=== PATIENT | female | born 1945 ===

== ENCOUNTER 2017-05-17 18:51 | Inpatient (IN) | payer MEDICARE ==
[2017-05-17 20:05] LABS: BASO # 0.1 K/uL (0.0-0.2); BASO % 1.2 % (0.0-2.0); EOS # 0.1 K/uL (0.0-0.7); EOS % 0.9 % (0.0-4.0); HEMOGLOBIN 13.5 g/dL (12.0-16.0); LYMPH # 1.9 K/uL (1.0-4.3); LYMPH % 29.8 % (20.0-40.0); MEAN CELL VOLUME 90.3 fl (81.0-99.0); MEAN CORPUSCULAR HEMOGLOBIN 30.2 pg (27.0-31.0); MEAN CORPUSCULAR HGB CONC 33.4 g/dL (33.0-37.0); MEAN PLATELET VOLUME 7.4 fl (7.2-11.7); MONO # 0.3 K/uL (0.0-0.8); MONO % 5.6 % (0.0-10.0); NEUT # 3.9 K/uL (1.8-7.0); NEUT % 62.5 % (50.0-75.0); RBC 4.47 Mil/uL (3.80-5.20); RED CELL DISTRIBUTION WIDTH 14.5 % (11.5-14.5); WHITE BLOOD COUNT 6.2 K/uL (4.8-10.8)
[2017-05-17 20:24] LABS: ALB/GLOB RATIO 1.5 (1.0-2.1); ALT/SGPT 45 U/L (9-52); AST/SGOT 33 U/L (14-36); BLOOD UREA NITROGEN 8 mg/dl (7-17); CALCIUM 8.9 mg/dL (8.4-10.2); GFR AFRICAN-AMERICAN > 60; GFR NON-AFRICAN AMERICAN > 60
[2017-05-17 20:32] LABS: PROTHROMBIN TIME 10.1 Seconds (9.8-13.1)
--- NOTE | 2017-05-17 20:39 | ED PDOC ---
"Syncope/Near Syncope/Dizziness Time Seen by Provider: 05/17/17 19:02 Chief Complaint (Nursing): Syncope Chief Complaint (Provider): Syncope History Per: Patient, EMS, Other (bystander) History/Exam Limitations: no limitations Onset/Duration Of Symptoms: Mins (prior to arrival) Current Symptoms Are (Timing): Still Present Additional Complaint(s): Guerda Elizabeth is a 71 year old female who presents to the emergency department via EMS for an evaluation of syncopal episode associated with right knee pain onset prior to arrival. Patient stated that the last thing she remembered is going back upstairs to her apartment. A bystander reported patient appeared unresponsive, had eyes open, and tongue was sticking out of her mouth but no seizure activities or postictal period noted. EMS also reported urinary incontinence but patient denied this. PMD: Gaston Jain MD Past Medical History Reviewed: Historical Data, Nursing Documentation, Vital Signs Vital Signs: Last Vital Signs Temp 97.4 F L 05/17/17 18:57 Pulse 78 05/17/17 18:57 Resp 17 05/17/17 18:57 BP 115/60 05/17/17 18:57 Pulse Ox 96 05/17/17 18:57 - Medical History PMH: Asthma, Diabetes, HTN, Hypercholesterolemia, Seizures Denies: HIV, Chronic Kidney Disease - Surgical History Surgical History: Tonsillectomy - Family History Family History: States: Unknown Family Hx - Social History Current smoker - smoking cessation education provided: Yes Alcohol: Occasional Drugs: Denies - Home Medications Home Medications: Ambulatory Orders Medication Instructions Recorded Atorvastatin Calcium [Lipitor] 40 mg PO DAILY 07/13/15 Insulin Lispro, Recombinant 8 units SC AC #0 07/14/15 [Humalog] Valsartan [Diovan] 80 mg PO DAILY #0 tab 07/14/15 Insulin Glargine,Hum.rec.anlog 40 units SC HS 05/17/17 [Lantus] - Allergies Allergies/Adverse Reactions: Allergies Allergy/AdvReac Type Severity Reaction Status Date / Time No Known Allergies Allergy Verified 05/17/17 19:48 Review of Systems ROS Statement: Except As Marked, All Systems Reviewed And Found Negative Musculoskeletal: Positive for: Other (right knee pain) Neurological: Positive for: Other (syncopal episode) Physical Exam - Reviewed Nursing Documentation Reviewed: Yes Vital Signs Reviewed: Yes - Physical Exam Appears: Positive for: Well, Non-toxic, No Acute Distress Head Exam: Positive for: ATRAUMATIC, NORMAL INSPECTION, NORMOCEPHALIC Skin: Positive for: Normal Color Eye Exam: Positive for: EOMI, Normal appearance, PERRL Cardiovascular/Chest: Positive for: Regular Rate, Rhythm Respiratory: Positive for: CNT, Normal Breath Sounds Extremity: Positive for: Normal ROM, Tenderness (right knee). Negative for: Pedal Edema, Deformity Neurologic/Psych: Positive for: Alert (x3), prosthodontist II-XII (intact), Oriented - Laboratory Results Result Diagrams: 05/17/17 20:00 05/17/17 20:00 - ECG O2 Sat by Pulse Oximetry: 96 (RA) Pulse Ox Interpretation: Normal Medical Decision Making Medical Decision Making: Initial Impression: Syncope Initial Plan: * CT head without contrast * EKG * Labs * Troponin I * Urine dipstick * PTT * PT * CXR * Xray knee (right) * Glucose, blood, POC * Urinalysis Time: 2054 --CT head FINDINGS: BRAIN: Stable appearance of small, focal areas of encephalomalacia in the right parietal and occipital lobes, which may be secondary to old/chronic infarcts. Areas of hypodensity seen in the white matter bilaterally, nonspecific in appearance, but most likely representing chronic small vessel ischemic changes, in a patient of this age. Tiny calcification in the left occipital lobe, stable in appearance. Diffuse, moderate to marked age-related cortical atrophy and ventriculomegaly. No significant acute abnormality identified. No acute hemorrhage seen within the brain. No acute extra-axial fluid collections visualized. No evidence of significant mass effect within the brain. VENTRICLES: See above. BONES/JOINTS: Since the prior study, there has been development of multiple lytic lesions in the skull. The largest of these is a 2 cm lytic lesion at the vertex, image 41/ series 601, which erodes through the inner table. There are additional lytic lesions in the right skull base, involving the sphenoid bone, image 7 of series 7, the right occipital bone overlying the right cerebellum, image 6 of series 7, and the left frontal bone, image 36 of series 7. SOFT TISSUES: No acute abnormality of the visualized soft tissues is seen. VASCULATURE: Atherosclerotic calcification. SINUSES: Visualized paranasal sinuses appear clear. MASTOID AIR CELLS: Mastoid air cells appear clear. IMPRESSION: GUERDA ELIZABETH | Final Radiology Report CONFIDENTIALITY STATEMENT This report is intended only for use by the referring physician, and only in accordance with law. If you received this in error, call [phone]. Page 2 of 2 - No acute findings is seen within the brain. 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 In a patient of this age, cannot exclude a neoplastic process, such as lytic skull metastases or multiple myeloma. Further workup is recommended, such as with followup MRI of the brain with gadolinium or bone scan, not necessarily on an emergent basis. - See above for remaining findings. Scribe Attestation: Documented by Ann Mora, acting as a scribe for Suzette Otero MD. Provider Scribe Attestation: All medical record entries made by the Scribe were at my direction and personally dictated by me. I have reviewed the chart and agree that the record accurately reflects my personal performance of the history, physical exam, medical decision making, and the department course for this patient. I have also personally directed, reviewed, and agree with the discharge instructions and disposition. Disposition - Clinical Impression Clinical Impression: Syncope, Bone lesion - Patient ED Disposition Is Patient to be Admitted: Yes - Disposition Disposition Time: 21:28 Condition: STABLE - Pt Status Changed To: Hospital Disposition Of: Inpatient - Admit Certification Admit to Inpatient:: After my assessment, the patient will require hospitalization for at least two midnights. This is because of the severity of symptoms shown, intensity of services needed, and/or the medical risk in this patient being treated as an outpatient. - POA Present On Arrival: None"
--- NOTE | 2017-05-17 20:56 | CT ---
EXAM: CT Head Without Intravenous Contrast CLINICAL HISTORY: 71 years old, female; Signs and symptoms; Syncope and collapse TECHNIQUE: Axial computed tomography images of the head/brain without intravenous contrast. This CT exam was performed using one or more of the following dose reduction techniques: automated exposure control, adjustment of the mA and/or kV according to patient size, and/or use of iterative reconstruction technique. Coronal and sagittal reformatted images were created and reviewed. EXAM DATE/TIME: 05/17/2017 7:46 PM COMPARISON: Prior head CT of 07/12/2015 FINDINGS: BRAIN: Stable appearance of small, focal areas of encephalomalacia in the right parietal and occipital lobes, which may be secondary to old/chronic infarcts. Areas of hypodensity seen in the white matter bilaterally, nonspecific in appearance, but most likely representing chronic small vessel ischemic changes, in a patient of this age. Tiny calcification in the left occipital lobe, stable in appearance. Diffuse, moderate to marked age-related cortical atrophy and ventriculomegaly. No significant acute abnormality identified. No acute hemorrhage seen within the brain. No acute extra-axial fluid collections visualized. No evidence of significant mass effect within the brain. VENTRICLES: See above. BONES/JOINTS: Since the prior study, there has been development of multiple lytic lesions in the skull. The largest of these is a 2 cm lytic lesion at the vertex, image 41/series 601, which erodes through the inner table. There are additional lytic lesions in the right skull base, involving the sphenoid bone, image 7 of series 7, the right occipital bone overlying the right cerebellum, image 6 of series 7, and the left frontal bone, image 36 of series 7. SOFT TISSUES: No acute abnormality of the visualized soft tissues is seen. VASCULATURE: Atherosclerotic calcification. SINUSES: Visualized paranasal sinuses appear clear. MASTOID AIR CELLS: Mastoid air cells appear clear. IMPRESSION: - No acute findings is seen within the brain. 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 In a patient of this age, cannot exclude a neoplastic process, such as lytic skull metastases or multiple myeloma. Further workup is recommended, such as with followup MRI of the brain with gadolinium or bone scan, not necessarily on an emergent basis. - See above for remaining findings.
--- NOTE | 2017-05-17 23:04 | CP.PCM.HP ---
History of Present Illness - History of Present Illness History of Present Illness: 71 y/o F with PMH including HTN, IDDM2, CAD s/p stent, ETOH abuse brought in by EMS after syncopal episode. Patient reports drinking 2-3 24oz cans of beer outside of her apartment, after which she got up enter her home. At that time a bystander witnessed her lose consciousness, falling to the floor and hitting her head. Witness states patient had her eyes open but appeared unresponsive. Several seconds later, patient regained consciousness. No convulsions, tongue biting or post-ictal state was noted but EMS reports urinary incontinence. Patient had a similar episode 2 years ago associated with ETOH consumption, which required admission. An EEG was performed at that time which was within normal limits. Patient has been consistently drinking 2-3 24oz cans of beer daily for years despite attempts at cutting back and has never been admitted to a rehab. She currently reports right knee pain from her fall but denies headache , confusion, visual disturbances, dizziness, focal neuro deficits, chest pain, SOB, abdominal pain, nausea or vomiting. PMD: Dr Díaz Present on Admission - Present on Admission Any Indicators Present on Admission: Yes History of DVT/PE: No History of Uncontrolled Diabetes: Yes Urinary Catheter: No Decubitus Ulcer Present: No Review of Systems - Review of Systems All systems: reviewed and no additional remarkable complaints except Past Patient History - Past Medical History & Family History Past Medical History?: Yes - Past Social History Smoking Status: Light Smoker < 10 Cigarettes Daily (5 cig per day. Has smoked since age 12) Alcohol: Other (Drinks 2-3 24 oz beers daily) Drugs: Denies Home Situation {Lives}: With Family (Lives with daughter) - CARDIAC Hx Cardiac Disorders: Yes (CAD s/p stent) Hx Hypertension: Yes - PULMONARY Hx Asthma: Yes - NEUROLOGICAL Hx Syncope: Yes - HEENT Hx HEENT Problems: No - RENAL Hx Chronic Kidney Disease: No - ENDOCRINE/METABOLIC Hx Diabetes Mellitus Type 2: Yes - HEMATOLOGICAL/ONCOLOGICAL Hx Human Immunodeficiency Virus (HIV): No - INTEGUMENTARY Hx Dermatological Problems: No - MUSCULOSKELETAL/RHEUMATOLOGICAL Hx Falls: Yes - GASTROINTESTINAL Hx Gastrointestinal Disorders: No - GENITOURINARY/GYNECOLOGICAL Hx Genitourinary Disorders: No - PSYCHIATRIC Hx Psychophysiologic Disorder: Yes Hx Substance Use: Yes (ETOH abuse) - SURGICAL HISTORY Hx Tonsillectomy: Yes - ANESTHESIA Hx Anesthesia: Yes Hx Anesthesia Reactions: No Meds Allergies/Adverse Reactions: Allergies Allergy/AdvReac Type Severity Reaction Status Date / Time No Known Allergies Allergy Verified 05/17/17 19:48 Physical Exam - Constitutional Appears: Non-toxic, No Acute Distress - Head Exam Head Exam: ATRAUMATIC (No visible head trauma or brusing), NORMAL INSPECTION - Eye Exam Eye Exam: EOMI, PERRL - ENT Exam ENT Exam: Mucous Membranes Moist - Respiratory Exam Respiratory Exam: absent: Chest Wall Tenderness Additional comments: B/L air entry present with no wheezes, crackles or rhonchii audible. Prolonged expiratory phase. No signs of respiratory distress. - Cardiovascular Exam Cardiovascular Exam: REGULAR RHYTHM, RRR, +S1, +S2 - GI/Abdominal Exam GI & Abdominal Exam: Normal Bowel Sounds, Soft. absent: Guarding, Rebound, Tenderness - Extremities Exam Extremities exam: Positive for: normal capillary refill. Negative for: calf tenderness, pedal edema - Neurological Exam Neurological exam: Alert, CN II-XII Intact, Oriented x3 Additional comments: [id number] normal b/l. - Psychiatric Exam Psychiatric exam: Normal Affect, Normal Mood - Skin Skin Exam: Dry, Warm Results - Vital Signs Recent Vital Signs: Last Vital Signs Temp 98.4 F 05/17/17 22:49 Pulse 73 05/17/17 22:49 Resp 16 05/17/17 22:49 BP 148/66 05/17/17 22:49 Pulse Ox 97 05/17/17 22:14 - Labs Result Diagrams: 05/17/17 20:00 05/17/17 20:00 Labs: Laboratory Results - last 24 hr 05/17/17 22:40 Alcohol, Quantitative 149 H Assessment & Plan - Assessment and Plan (Free Text) Assessment: 71 y/o F with PMH including HTN, IDDM2, CAD s/p stent, ETOH abuse brought in by EMS after syncopal episode associated with ETOH use. Plan: Syncope -CT head did not detect any acute intracranial bleeding. Stable focal areas of encephalomalacia are present in right parietal and occipital lobes which may be secondary to old/chronic infarcts. Multiple lytic lesions detected in the skull , the largest measuring 2cm, which is a new finding compared to prior study in . -Possibly ETOH related -EKG sinus rhythm with 1st degree AV block -Admit to telemetry for continuous cardiac monitoring -Echo, Carotid U/S ordered -Normal EEG in 06/2015 -Neurology consult requested Insulin Dependent Diabetes Mellitus, Type 2 -Last HgbA1c: 11.4% on 07/13/15 -Will repeat A1c -Continue Levemir 40units SC HS -MDSS -Accuchecks ACHS -Hypoglycemia protocol HTN -Well controlled -Continue valsartan 80mg PO daily CAD s/p stent -Taking atorvastatin 40mg PO HS -ASA 81mg PO daily ETOH abuse -Serum ETOH 149 in ED -CIWA score: 0 -Will monitor for signs of withdrawal although patient states she has been abstinent for as long as 1 month without withdrawal symptoms -Social work consult requested DVT Prophylaxis -Lovenox 40mg SC daily
[2017-05-17] MEDS ORDERED: Glucagon Recombinant 1 mg Inj IM PRN (23:16)
[2017-05-17] MEDS ORDERED: Dextrose 50% SYRINGE Inj (50 ml) IV PRN (23:16)
[2017-05-17] MEDS: Insulin Detemir 100 Units/ml Inj SC SCH (23:55)
[2017-05-18 01:50] LABS: SQUAMOUS EPITHIAL < 1 /hpf (0-5); URINE BILIRUBIN NEGATIVE (NEGATIVE); URINE BLOOD SMALL (NEGATIVE); URINE CLARITY CLEAR (Clear); URINE COLOR STRAW (YELLOW); URINE GLUCOSE (UA) >=500 mg/dL (Normal); URINE LEUKOCYTE ESTERASE NEG Leu/uL (Negative); URINE NITRATE NEGATIVE (NEGATIVE); URINE PROTEIN NEGATIVE (NEGATIVE); URINE UROBILINOGEN 0.2-1.0 mg/dL (0.2-1.0)
[2017-05-18 05:33] LABS: BARBITURATES, UR NEGATIVE (NEGATIVE); BENZODIAZEPINES, UR NEGATIVE (NEGATIVE); OPIATES, UR NEGATIVE (NEGATIVE); PHENCYCLIDINE, UR NEGATIVE (NEGATIVE)
[2017-05-18] MEDS: Insulin Regular 100 units/ml SC SCH ×4 (08:30→22:18)
--- NOTE | 2017-05-18 08:52 | RAD ---
HISTORY: Syncope COMPARISON: No prior. TECHNIQUE: Chest PA and lateral FINDINGS: LUNGS: No active pulmonary disease. PLEURA: No significant pleural effusion identified. No pneumothorax apparent. CARDIOVASCULAR: Normal. OSSEOUS STRUCTURES: No significant abnormalities. VISUALIZED UPPER ABDOMEN: Normal. OTHER FINDINGS: None. IMPRESSION: No active disease.
--- NOTE | 2017-05-18 08:56 | RAD ---
PROCEDURE: Right Knee Radiographs. HISTORY: Fall COMPARISON: None. FINDINGS: BONES: Normal. No fracture. JOINTS: Normal. No osteoarthritis. JOINT EFFUSION: None. OTHER FINDINGS: None. IMPRESSION: Normal radiographs of the right knee.
[2017-05-18] MEDS ORDERED: VALSARTAN 80 MG PO SCH (09:00)
[2017-05-18] MEDS: Enoxaparin 40 mg Syringe SC SCH (09:12)
--- NOTE | 2017-05-18 10:37 | CP.PCM.PN ---
Subjective - Date & Time of Evaluation Date of Evaluation: 05/18/17 Time of Evaluation: 08:30 - Subjective Subjective: No acute events overnight. Patient feels better. She denies any headaches, nausea, vomiting, tremor, auditory/tactile hallucinations. She has right knee pain. No other complaints at this time. She ambulated to the bathroom without difficulty. Answering questions appropriately, calm and cooperative. Neuro consult, Dr. Arenas for syncopal episode. Monitor for alcohol withdrawal, CIWA 0. Objective - Vital Signs/Intake and Output Vital Signs (last 24 hours): Temp Pulse Resp BP Pulse Ox 98.5 F 77 18 139/53 L 98 05/18/17 08:00 05/18/17 08:00 05/18/17 08:00 05/18/17 08:00 05/18/17 08:00 - Medications Medications: Current Medications Aspirin (Aspirin Chewable) 81 mg PO DAILY [facility] Last Admin: 05/18/17 09:11 Dose: 81 mg Atorvastatin Calcium (Lipitor) 40 mg PO HS [facility] Dextrose (Dextrose 50% Inj) 0 ml IV STAT PRN; Protocol PRN Reason: Hyglycemia Protocol Dextrose (Glutose 15) 0 gm PO ONCE PRN; Protocol PRN Reason: Hypoglycemia Protocol Enoxaparin Sodium (Lovenox) 40 mg SC DAILY [facility] PRN Reason: Protocol Last Admin: 05/18/17 09:12 Dose: 40 mg Glucagon (Glucagen Diagnostic Kit) 0 mg IM STAT PRN; Protocol PRN Reason: Hypoglycemia Protocol Insulin Detemir (Levemir) 40 units SC [facility] Last Admin: 05/17/17 23:55 Dose: 40 u Insulin Human Regular (Humulin R) 0 units SC [facility] PRN Reason: Protocol Last Admin: 05/18/17 08:30 Dose: 2 unit Thiamine HCl (Vitamin B1 Tab) 100 mg PO DAILY [facility] Valsartan (Diovan) 80 mg PO DAILY [facility] Last Admin: 05/18/17 09:11 Dose: 80 mg - Labs Labs: PT 10.1 Seconds (9.8-13.1) 05/17/17 20:00 INR 1.0 (0.9-1.2) 05/17/17 20:00 APTT 28.0 Seconds (25.6-37.1) 05/17/17 20:00 - Constitutional Appears: No Acute Distress - Eye Exam Eye Exam: EOMI, Normal appearance, PERRL - ENT Exam ENT Exam: Mucous Membranes Moist, Normal Exam - Neck Exam Neck Exam: Full ROM, Normal Inspection. absent: Lymphadenopathy - Respiratory Exam Respiratory Exam: Clear to Ausculation Bilateral, NORMAL BREATHING PATTERN - Cardiovascular Exam Cardiovascular Exam: REGULAR RHYTHM, +S1, +S2 - GI/Abdominal Exam GI & Abdominal Exam: Soft, Normal Bowel Sounds. absent: Tenderness - Neurological Exam Neurological Exam: Alert, Awake, CN II-XII Intact, Normal Gait - Psychiatric Exam Psychiatric exam: Normal Affect, Normal Mood - Skin Skin Exam: Dry, Intact, Normal Color, Warm Assessment and Plan - Assessment and Plan (Free Text) Assessment: 71 y/o F with PMH including HTN, IDDM2, CAD s/p stent, ETOH abuse brought in by EMS after syncopal episode associated with ETOH use. CIWA score 0, will monitor for withdrawals. Workup for Multiple myeloma, however CBC /CMP WNL. Dr. Arenas (neurology) was consulted. Plan: Syncope -likely secondary to alcohol abuse, CT head neg for ICH, +multiple lytic lesions. -EKG sinus rhythm with 1st degree AV block -Echo, Carotid U/S ordered, pending -Normal EEG in 06/2015, repeat pending Insulin Dependent Diabetes Mellitus, Type 2 -Last HgbA1c: 11.4% on 07/13/15, pending repeat -Continue Levemir 40units SC HS -MDSS/Accuchecks ACHS/ Hypoglycemia protocol HTN -Well controlled -Continue valsartan 80mg PO daily CAD s/p stent -Taking atorvastatin 40mg PO HS -ASA 81mg PO daily ETOH abuse -etoh intoxication on admission, Serum ETOH 149 in ED -CIWA score: 0 -Will monitor for signs of withdrawal, start librium 10mg q8 hrs -Social work consult requested DVT Prophylaxis -Lovenox 40mg SC daily
--- NOTE | 2017-05-18 10:53 | CARD ---
APPROVED REPORT EKG Measurement Heart [id number] <Conclusion> Sinus rhythm with 1st degree AV block Possible Left atrial enlargement Borderline ECG
--- NOTE | 2017-05-18 12:21 | CARD ---
APPROVED REPORT EXAM: Two-dimensional and M-mode echocardiogram with Doppler and color Doppler. Other Information Quality : FairRhythm : NSR Technically limited study due to Poor Echo Window INDICATION Cardiac Disease: CAD Surgery/Intervention Status/Post Intervention: Stent 2D DIMENSIONS IVSd0.85 (0.7-1.1cm)LVDd3.99 (3.9-5.9cm) PWd0.79 (0.7-1.1cm)IVSs1.05 (0.8-1.2cm) LVDs2.20 (2.5-4.0cm)FS (%) 44.9 % PWs0.83 (0.8-1.2cm) Mitral Valve MV E Vluhfjvm92.9cm/sMV DECEL [id number] A Cehjwetw67.4cm/s MV GAN39uxU/A ratio0.7MVA (PHT)3.27cm2 TDI E/Lateral E'0.0E/Medial E'0.0 LEFT VENTRICLE The left ventricle is normal in size. There is normal left ventricular wall thickness. The left ventricular function is normal. The left ventricular ejection fraction is - 70%. There is normal LV segmental wall motion. Transmitral Doppler flow pattern is Grade I-abnormal relaxation pattern. No left ventricle thrombus noted on this study. There is no ventricular septal defect visualized. There is no left ventricular aneurysm. There is no mass noted in the left ventricle. RIGHT VENTRICLE The right ventricle is normal in size. There is normal right ventricular wall thickness. The right ventricular systolic function is normal. ATRIA The left atrium size is normal. There is no thrombus suspected in the left atrium. The right atrium size is normal. The interatrial septum is intact with no evidence for an atrial septal defect. AORTIC VALVE The aortic valve is normal in structure and function. There is trace aortic regurgitation. There is no aortic valvular stenosis. MITRAL VALVE The mitral valve is normal in structure and function. There is no evidence of mitral valve prolapse. There is no mitral valve stenosis. Mitral regurgitation is trace. TRICUSPID VALVE The tricuspid valve is normal in structure and function. There is trace tricuspid regurgitation. There is no tricuspid valve prolapse or vegetation. There is no tricuspid valve stenosis. PULMONIC VALVE The pulmonic valve was not visualized. Doppler studies of the PV were not performed. GREAT VESSELS The aortic root is normal in size. The IVC is normal in size and collapses >50% with inspiration. PERICARDIAL EFFUSION There is a very small anterior echo free space. There is no pleural effusion. <Conclusion> The study was technically difficult. The left ventricle is normal in size. There is normal left ventricular wall thickness. The left ventricular function is normal. The left ventricular ejection fraction is - 70%. The left atrium, right ventricle and right atrium are normal in size. The mitral, aortic and tricuspid valves are normal. There is trace regurgitation of the mitral, aortic and tricuspid valve.
[2017-05-18 17:24] LABS: FOLATE 11.9 ng/mL
[2017-05-18] MEDS ORDERED: INSULIN GLARGINE HUM REC ANLOG 40 UNIT SC SCH (22:00)
[2017-05-18] MEDS ORDERED: Insulin Detemir 100 Units/ml Inj SC SCH (22:00)
[2017-05-18] MEDS: Insulin Detemir 100 Units/ml Inj SC SCH (22:17)
[2017-05-19] MEDS: Insulin Regular 100 units/ml SC SCH ×4 (06:33→22:36)
[2017-05-19] MEDS: Enoxaparin 40 mg Syringe SC SCH (08:51)
--- NOTE | 2017-05-19 10:46 | CP.PCM.CON ---
History of Present Illness - History of Present Illness History of Present Illness: This 71-year- old female was hospitalized following a syncopal episode which was witnessed and the patient subsequently had a post ictal state. The patient has had syncopal episodes and near syncopal episodes in the past. The patient is a long-standing diabetic on insulin and has a long history of cigarette smoking and drinking couple of cans of beers virtually every day for number of years. She has had a coronary stent inserted approximately 8-10 years back following a stress test. She never suffered a myocardial infarction and has never experienced congestive cardiac failure. The patient was on Diovan for management of hypertension. She denied taking any beta blockers and denied any history of glaucoma and does not use any eye drops. She denied any history of thyroid disease. At the time of this examination the patient was fully alert awake and coherent and was able to answer Russians precisely. Her heart rate was 68 bpm regular and her blood pressure was 140/70 mmHg. Her jugular venous pressure was not elevated and there was no edema over her lower extremity. The pedal pulses were well felt. There were no carotid bruits. The apex was not palpable and the first and second heart sounds were normal. There was no murmur or gallop. There were no rales. Abdomen was soft and liver and spleen are not palpable. Her electric cardiogram shows sinus rhythm with nonspecific ST-T changes. There were no Q waves on her electric cardiogram. Review off her echocardiogram showed normal left ventricular size and wall motion with preserved left ventricular systolic function. No significant gallop at the was detected. Her lab data showed a hemoglobin and hematocrit of 13.5 g and 40.4 percent respectively. Her BUN and creatinine were normal. Her electrolytes were normal. Her troponin level was within normal limits. Her LDL cholesterol was 54 mg percent. Her TSH was normal. Her telemetry shows occasional pauses because of nonconducted P waves a pattern suggestive of second degree AV block. These tracings could not be documented because the printer's were not working. Impression: Syncopal episode with a history of prior syncopal and near-syncopal episodes. Evidence of second degree AV block. Stable coronary artery disease. Insulin-dependent diabetes mellitus and hypertension. Chronic cigarette use and ethanol abuse. I will discuss the possible need for a pacemaker with the patient and her family. Past Patient History - Past Medical History & Family History Past Medical History?: Yes - Past Social History Smoking Status: Light Smoker < 10 Cigarettes Daily (5 cig per day. Has smoked since age 12) Alcohol: Other (Drinks 2-3 24 oz beers daily) Drugs: Denies Home Situation {Lives}: With Family (Lives with daughter) - CARDIAC Hx Cardiac Disorders: Yes (CAD s/p stent) Hx Hypertension: Yes - PULMONARY Hx Asthma: Yes - NEUROLOGICAL Hx Syncope: Yes - HEENT Hx HEENT Problems: No - RENAL Hx Chronic Kidney Disease: No - ENDOCRINE/METABOLIC Hx Diabetes Mellitus Type 2: Yes - HEMATOLOGICAL/ONCOLOGICAL Hx Human Immunodeficiency Virus (HIV): No - INTEGUMENTARY Hx Dermatological Problems: No - MUSCULOSKELETAL/RHEUMATOLOGICAL Hx Falls: Yes - GASTROINTESTINAL Hx Gastrointestinal Disorders: No - GENITOURINARY/GYNECOLOGICAL Hx Genitourinary Disorders: No - PSYCHIATRIC Hx Psychophysiologic Disorder: Yes Hx Substance Use: Yes (ETOH abuse) - SURGICAL HISTORY Hx Tonsillectomy: Yes - ANESTHESIA Hx Anesthesia: Yes Hx Anesthesia Reactions: No Meds Allergies/Adverse Reactions: Allergies Allergy/AdvReac Type Severity Reaction Status Date / Time No Known Allergies Allergy Verified 05/17/17 19:48 - Medications Medications: Current Medications Aspirin (Aspirin Chewable) 81 mg PO DAILY [facility] Last Admin: 05/19/17 08:50 Dose: 81 mg Atorvastatin Calcium (Lipitor) 40 mg PO HS [facility] Last Admin: 05/18/17 22:17 Dose: 40 mg Chlordiazepoxide (Librium) 10 mg PO Q8 [facility] Last Admin: 05/19/17 08:57 Dose: 10 mg Dextrose (Dextrose 50% Inj) 0 ml IV STAT PRN; Protocol PRN Reason: Hyglycemia Protocol Dextrose (Glutose 15) 0 gm PO ONCE PRN; Protocol PRN Reason: Hypoglycemia Protocol Enoxaparin Sodium (Lovenox) 40 mg SC DAILY [facility] PRN Reason: Protocol Last Admin: 05/19/17 08:51 Dose: 40 mg Glucagon (Glucagen Diagnostic Kit) 0 mg IM STAT PRN; Protocol PRN Reason: Hypoglycemia Protocol Insulin Detemir (Levemir) 40 units SC HS [facility] Last Admin: 05/18/17 22:17 Dose: 40 u Insulin Human Regular (Humulin R) 0 units SC ACHS [facility] PRN Reason: Protocol Last Admin: 05/19/17 06:33 Dose: Not Given Nicotine (Nicoderm Cq) 1 patch TD DAILY [facility] Last Admin: 05/19/17 08:51 Dose: 1 patch Thiamine HCl (Vitamin B1 Tab) 100 mg PO DAILY [facility] Last Admin: 05/19/17 08:55 Dose: 100 mg Valsartan (Diovan) 80 mg PO DAILY [facility] Last Admin: 05/19/17 08:50 Dose: 80 mg Results - Vital Signs Recent Vital Signs: Last Vital Signs Temp 97.7 F 05/19/17 08:00 Pulse 80 05/19/17 09:00 Resp 18 05/19/17 08:00 BP 160/69 H 05/19/17 08:00 Pulse Ox 96 05/19/17 08:00 - Labs Result Diagrams: 05/17/17 20:00 05/17/17 20:00 Labs: Laboratory Results - last 24 hr 05/18/17 05/18/17 05/18/17 06:00 11:17 16:18 POC Glucose (mg/dL) 255 H 372 H Folate 11.9 05/18/17 05/19/17 21:27 05:16 POC Glucose (mg/dL) 152 H 100 Folate
--- NOTE | 2017-05-19 13:40 | CP.PCM.PN ---
Subjective - Date & Time of Evaluation Date of Evaluation: 05/19/17 Time of Evaluation: 09:50 - Subjective Subjective: Pt. seen and examined at bedside sitting in bed with tray table near bed waiting for breakfast. Pt. with no complaints at this time. Overnight uneventful. On ROS, pt. denies any headache, chest pain, dyspnea, abdominal pain , nause, vomiting, diarrhea, fever, chills, or limb pain. Objective - Vital Signs/Intake and Output Vital Signs (last 24 hours): Temp Pulse Resp BP Pulse Ox 98.1 F 72 18 174/71 H 96 05/19/17 12:54 05/19/17 12:54 05/19/17 12:54 05/19/17 12:54 05/19/17 12:54 - Medications Medications: Current Medications Aspirin (Aspirin Chewable) 81 mg PO DAILY [facility] Last Admin: 05/19/17 08:50 Dose: 81 mg Atorvastatin Calcium (Lipitor) 40 mg PO HS [facility] Last Admin: 05/18/17 22:17 Dose: 40 mg Chlordiazepoxide (Librium) 10 mg PO Q8 [facility] Last Admin: 05/19/17 08:57 Dose: 10 mg Dextrose (Dextrose 50% Inj) 0 ml IV STAT PRN; Protocol PRN Reason: Hyglycemia Protocol Dextrose (Glutose 15) 0 gm PO ONCE PRN; Protocol PRN Reason: Hypoglycemia Protocol Enoxaparin Sodium (Lovenox) 40 mg SC DAILY [facility] PRN Reason: Protocol Last Admin: 05/19/17 08:51 Dose: 40 mg Glucagon (Glucagen Diagnostic Kit) 0 mg IM STAT PRN; Protocol PRN Reason: Hypoglycemia Protocol Insulin Detemir (Levemir) 40 units SC HS [facility] Last Admin: 05/18/17 22:17 Dose: 40 u Insulin Human Regular (Humulin R) 0 units SC [facility] PRN Reason: Protocol Last Admin: 05/19/17 13:08 Dose: 4 unit Nicotine (Nicoderm Cq) 1 patch TD DAILY [facility] Last Admin: 05/19/17 08:51 Dose: 1 patch Thiamine HCl (Vitamin B1 Tab) 100 mg PO DAILY [facility] Last Admin: 05/19/17 08:55 Dose: 100 mg Valsartan (Diovan) 80 mg PO DAILY [facility] Last Admin: 05/19/17 08:50 Dose: 80 mg - Labs Labs: PT 10.1 Seconds (9.8-13.1) 05/17/17 20:00 INR 1.0 (0.9-1.2) 05/17/17 20:00 APTT 28.0 Seconds (25.6-37.1) 05/17/17 20:00 - Constitutional Appears: Non-toxic, No Acute Distress - ENT Exam ENT Exam: Mucous Membranes Moist - Respiratory Exam Respiratory Exam: Clear to Ausculation Bilateral, NORMAL BREATHING PATTERN - Cardiovascular Exam Cardiovascular Exam: REGULAR RHYTHM, +S1, +S2 - GI/Abdominal Exam GI & Abdominal Exam: Soft. absent: Tenderness - Extremities Exam Extremities Exam: Normal Capillary Refill, Normal Inspection - Neurological Exam Neurological Exam: Alert, Awake, Oriented x3 - Psychiatric Exam Psychiatric exam: Normal Affect, Normal Mood Assessment and Plan - Assessment and Plan (Free Text) Assessment: Assessment: 71 y/o F with PMH including HTN, IDDM2, CAD s/p stent, ETOH abuse brought in by EMS after syncopal episode associated with ETOH abuse. Plan: Syncope-CT head did not detect any acute intracranial bleeding. Stable focal areas of encephalomalacia are present in right parietal and occipital lobes which may be secondary to old/chronic infarcts. -EKG sinus rhythm with 1st degree AV block as pe Cardiology evidence of 2nd degree AV block will evaluate for Pacemaker placement -Echo 70% EF -Carotid U/S pending -Normal EEG in 06/2015 -Neurology consult- Dr. Arenas on board- input appreciatd -Cardiology Consult with Dr. Liao- input appreciated ETOH abuse -Serum ETOH 149 in ED -CIWA score: 0 -Social work consult requested -Librium Lytic lesions on CT head-Multiple lytic lesions detected in the skull, the largest measuring 2cm, which is a new finding compared to prior study in 06/2015. - Urine/Serum Immunofixation - Skeletal Survey - Will consider Hematology consult CAD s/p stent -Taking atorvastatin 40mg PO HS -ASA 81mg PO daily -Cardiology Consult with Dr. Liao- input appreciated HTN- BP trending in the 170's today -Increased valsartan 80mg PO daily to 160mg PO daily Insulin Dependent Diabetes Mellitus, Type 2 -Last HgbA1c: 11.4% on 07/13/15 -Continue Levemir 40units SC HS -MDSS -Accuchecks ACHS -Hypoglycemia protocol DVT Prophylaxis -Lovenox 40mg SC daily
--- NOTE | 2017-05-19 20:37 | CON ---
DATE: 05/19/2017 REASON FOR CONSULTATION: Syncopal attack. CHIEF COMPLAINT: The patient was brought into [facility] with a history of and syncopal attack following consuming beer. From a neurologic point of view, I was called in to evaluate her for further management. HISTORY OF PRESENT ILLNESS: Ms. Guerda Elizabeth is a 71-year-old right-handed female in usual state of health. She consumed two beer and had a company with one of her friend one more beer. Following consuming three canes of beer on her way to her apartment, she just drop on the floor. Her friend helped her not to get her hurt her head. No weakness or tonic-clonic activities, no seizure activities, no bowel or bladder incontinence. No history of bitten tongue. This episode lasted for about a few minutes and she was evaluated by EMS and she was brought in to [facility] for further evaluation. She claims that she had an episode like this in the past a year ago. She had a workup and no further treatment or further investigation was given like this admission. At present, she denies any complains. No history of headache. No history of visual or bulbar dysfunction. No dizziness. However, lying down that hurts her back. PAST MEDICAL HISTORY: Significant for coronary stent placement in the past. Non-insulin dependent diabetes mellitus. She had a long history of smoking as well, dyslipidemia. REVIEW OF SYSTEMS: A 12-point system been evaluated. Neurological system shows current episode of syncopal attack. MEDICATIONS: Aspirin, Diovan, Humulin, Levemir, Librium, Lipitor, vitamin B1, and nicotine patch. PHYSICAL EXAMINATION: VITAL SIGNS: Blood pressure 160/69, mean artery pressure of 99, respiratory rate is 18, temperature 97.7, pulse rate 80 and regular. NECK: Supple. No carotid bruit. HEART: Sounds are regular. CHEST: Fair air entry. EXTREMITIES: No edema of legs. NEUROLOGICAL EXAMINATION: MENTAL STATUS EXAMINATION: She is awake, alert, and oriented to person, place, and time. Speech is clear. Naming, repetition, fluency, comprehension all within normal. No anterograde amnesia. She does have retrograde amnesia from the fall. No confabulation. No sign of suicidal ideation. CRANIAL NERVE EXAMINATION: Visual field intact. Pupils reactive to light. Extraocular movement normal. No nystagmus. No facial sensory deficit. No facial asymmetry. Hearing is normal. Tongue is midline. Good gag. MOTOR EXAMINATION: Outstretched hand with eyes closed, no drift is noted. Probably symmetric on either side. Deep tendon reflexes: Biceps, brachialis, triceps 2+ on either side. Both knees are absent. Both ankles are absent. Plantars are downgoing. From the fall, she bruised her right knee. COORDINATION: [id number]-kurrus test is intact. LABORATORY DATA: CT workup. CT of the head reviewed by me showed no acute pathology is noted. EKG shows first-degree heart block and possible left atrial enlargement. Blood workup: WBC 6.2, hemoglobin 13.5, hematocrit 40.4, and platelet 257. PT 10.1, INR 1.2, PTT 28.0. Sodium 134, potassium 3.9, chloride 101, bicarbonate 22, BUN 8, creatinine 0.5. GFR more than 60. Random glucose 102. Liver function test is normal. Cholesterol 157, LDL 54, HDL 84, B12 of 408, TSH 1.16. Toxicology at the time of admission, alcohol level was 149. The CT of the head also showed punched out lesions in the skull, possible lytic lesions. RECOMMENDATIONS: 1. Continue fall precaution. 2. Multivitamin including B1 is given. 3. No evidence of delirium tremens present. 4. Options from alcohol been discussed with the patient. 5. Electroencephalogram to rule out any abnormal activities suggestive for seizures. 6. Cardiology consultation is appreciated, probably she would be a candidate for pacemaker. 7. Continue the present management. When medically stable, the patient can be discharged and should have follow up visit with me as an outpatient. Kalia Arenas MD
[2017-05-19] MEDS: Insulin Detemir 100 Units/ml Inj SC SCH (22:40)
[2017-05-20] MEDS: Insulin Regular 100 units/ml SC SCH ×3 (06:58→22:13)
--- NOTE | 2017-05-20 08:16 | CP.PCM.PN ---
Subjective - Date & Time of Evaluation Date of Evaluation: 05/20/17 Time of Evaluation: 08:05 - Subjective Subjective: Has been fairly symptomfree over last 24 hrs Telemetry shows sinus arrhythmia with occ early APCs which are blocked followed by a nonconducted P wave This creates a pause of BP 138/70 mm Hg Chest clear, heart sounds pure No signs of CHF will obtain a Holter recording to find out longest pause of the day (telemetry does not provide this info) Discussed with Dr. Jain. Objective - Vital Signs/Intake and Output Vital Signs (last 24 hours): Temp Pulse Resp BP Pulse Ox 97.8 F 60 18 161/71 H 95 05/20/17 07:59 05/20/17 07:59 05/20/17 07:59 05/20/17 07:59 05/20/17 07:59 - Medications Medications: Current Medications Aspirin (Aspirin Chewable) 81 mg PO DAILY [facility] Last Admin: 05/19/17 08:50 Dose: 81 mg Atorvastatin Calcium (Lipitor) 40 mg PO HS [facility] Last Admin: 05/19/17 21:36 Dose: 40 mg Chlordiazepoxide (Librium) 10 mg PO Q8 [facility] Last Admin: 05/20/17 01:08 Dose: 10 mg Dextrose (Dextrose 50% Inj) 0 ml IV STAT PRN; Protocol PRN Reason: Hyglycemia Protocol Dextrose (Glutose 15) 0 gm PO ONCE PRN; Protocol PRN Reason: Hypoglycemia Protocol Enoxaparin Sodium (Lovenox) 40 mg SC DAILY [facility] PRN Reason: Protocol Last Admin: 05/19/17 08:51 Dose: 40 mg Glucagon (Glucagen Diagnostic Kit) 0 mg IM STAT PRN; Protocol PRN Reason: Hypoglycemia Protocol Insulin Detemir (Levemir) 36 units SC HS [facility] Insulin Human Regular (Humulin R) 0 units SC ACHS [facility] PRN Reason: Protocol Last Admin: 05/20/17 06:58 Dose: Not Given Metformin HCl (Glucophage) 500 mg PO BIDWM [facility] Nicotine (Nicoderm Cq) 1 patch TD DAILY [facility] Last Admin: 05/19/17 08:51 Dose: 1 patch Thiamine HCl (Vitamin B1 Tab) 100 mg PO DAILY [facility] Last Admin: 05/19/17 08:55 Dose: 100 mg Valsartan (Diovan) 160 mg PO DAILY [facility] - Labs Labs: PT 10.1 Seconds (9.8-13.1) 05/17/17 20:00 INR 1.0 (0.9-1.2) 05/17/17 20:00 APTT 28.0 Seconds (25.6-37.1) 05/17/17 20:00
[2017-05-20] MEDS: Enoxaparin 40 mg Syringe SC SCH (09:28)
--- NOTE | 2017-05-20 10:03 | CP.PCM.PN ---
<Sarah Serrano - Last Filed: 05/20/17 14:29> Subjective - Date & Time of Evaluation Date of Evaluation: 05/20/17 Time of Evaluation: 07:25 - Subjective Subjective: No acute events overnight. Patient denies any complaints. Feels better. No headaches, dizziness, tremors, nausea/vomiting. She would like to walk alone to bathroom, requesting walker or PT. Objective - Vital Signs/Intake and Output Vital Signs (last 24 hours): Temp Pulse Resp BP Pulse Ox 97.8 F 60 18 161/71 H 95 05/20/17 07:59 05/20/17 07:59 05/20/17 07:59 05/20/17 07:59 05/20/17 07:59 - Medications Medications: Current Medications Aspirin (Aspirin Chewable) 81 mg PO DAILY [facility] Last Admin: 05/20/17 08:45 Dose: 81 mg Atorvastatin Calcium (Lipitor) 40 mg PO [facility] Last Admin: 05/19/17 21:36 Dose: 40 mg Chlordiazepoxide (Librium) 10 mg PO Q8 [facility] Last Admin: 05/20/17 08:49 Dose: 10 mg Dextrose (Dextrose 50% Inj) 0 ml IV STAT PRN; Protocol PRN Reason: Hyglycemia Protocol Dextrose (Glutose 15) 0 gm PO ONCE PRN; Protocol PRN Reason: Hypoglycemia Protocol Enoxaparin Sodium (Lovenox) 40 mg SC DAILY [facility] PRN Reason: Protocol Last Admin: 05/19/17 08:51 Dose: 40 mg Glucagon (Glucagen Diagnostic Kit) 0 mg IM STAT PRN; Protocol PRN Reason: Hypoglycemia Protocol Insulin Detemir (Levemir) 36 units SC [facility] Insulin Human Regular (Humulin R) 0 units SC [facility] PRN Reason: Protocol Last Admin: 05/20/17 06:58 Dose: Not Given Metformin HCl (Glucophage) 500 mg PO BIDWM [facility] Last Admin: 05/20/17 08:46 Dose: 500 mg Nicotine (Nicoderm Cq) 1 patch TD DAILY [facility] Last Admin: 05/20/17 08:47 Dose: 1 patch Thiamine HCl (Vitamin B1 Tab) 100 mg PO DAILY [facility] Last Admin: 05/20/17 08:46 Dose: 100 mg Valsartan (Diovan) 160 mg PO DAILY [facility] Last Admin: 05/20/17 08:45 Dose: 160 mg - Labs Labs: PT 10.1 Seconds (9.8-13.1) 05/17/17 20:00 INR 1.0 (0.9-1.2) 05/17/17 20:00 APTT 28.0 Seconds (25.6-37.1) 05/17/17 20:00 - Constitutional Appears: Non-toxic, No Acute Distress - Head Exam Head Exam: NORMAL INSPECTION, NORMOCEPHALIC - Eye Exam Eye Exam: EOMI, Normal appearance, PERRL - ENT Exam ENT Exam: Mucous Membranes Moist - Respiratory Exam Respiratory Exam: NORMAL BREATHING PATTERN - Cardiovascular Exam Cardiovascular Exam: REGULAR RHYTHM, +S1, +S2 - GI/Abdominal Exam GI & Abdominal Exam: Soft, Normal Bowel Sounds. absent: Tenderness - Extremities Exam Extremities Exam: Normal Inspection. absent: Pedal Edema - Neurological Exam Neurological Exam: Alert, Awake, CN II-XII Intact, Oriented x3 - Psychiatric Exam Psychiatric exam: Normal Affect - Skin Skin Exam: Dry, Intact, Normal Color Assessment and Plan - Assessment and Plan (Free Text) Assessment: 71 y/o F with PMH including HTN, IDDM2, CAD s/p stent, ETOH abuse brought in by EMS after syncopal episode possibly secondary to ETOH abuse. ?second degree AV block, will get Holter Monitor. Plan: Syncope -CT head did not detect any acute intracranial bleeding. Stable focal areas of encephalomalacia are present in right parietal and occipital lobes which may be secondary to old/chronic infarcts. --Cardiology Consult with Dr. Liao- input appreciated ; ?second degree AV block , Holter Monitor today -Echo 70% EF -Carotid U/S: Right ICA degree of stenosis: Less than 50%. Left ICA degree of stenosis: 50- 69%. -Normal EEG in 06/2015, EEG/MRI/bone scan pending -Neurology consult- Dr. Arenas on board- input appreciatd EtOH abuse -Serum ETOH 149 in ED -CIWA score: 0 -Social work consult requested -Librium d/c today Lytic lesions on CT head -Multiple lytic lesions detected in the skull, the largest measuring 2cm, which is a new finding compared to prior study in 06/2015. - Urine/Serum Immunofixation - Skeletal Survey - Will consider Hematology consult pending results CAD s/p stent -Taking atorvastatin 40mg PO HS -ASA 81mg PO daily -Cardiology Consult with Dr. Liao- input appreciated HTN- BP trending in the 170's today -05/19: increased valsartan 80mg PO daily to 160mg PO daily -monitor Insulin Dependent Diabetes Mellitus, Type 2 -Last HgbA1c: 11.4% on 07/13/15, repeat: 05/18: 9.5% -Continue Levemir 36units SC HS, pt started on Metformin 500mg BID -MDSS -Accuchecks [facility] -Hypoglycemia protocol DVT Prophylaxis -Lovenox 40mg SC daily <Gaston Jain - Last Filed: 05/21/17 10:08> Objective - Vital Signs/Intake and Output Vital Signs (last 24 hours): Temp Pulse Resp BP Pulse Ox 98.6 F 72 20 148/79 94 L 05/21/17 07:53 05/21/17 07:53 05/21/17 07:53 05/21/17 07:53 05/21/17 07:53 - Medications Medications: Current Medications Aspirin (Aspirin Chewable) 81 mg PO DAILY [facility] Last Admin: 05/21/17 09:31 Dose: 81 mg Atorvastatin Calcium (Lipitor) 40 mg PO [facility] Last Admin: 05/20/17 22:15 Dose: 40 mg Dextrose (Dextrose 50% Inj) 0 ml IV STAT PRN; Protocol PRN Reason: Hyglycemia Protocol Dextrose (Glutose 15) 0 gm PO ONCE PRN; Protocol PRN Reason: Hypoglycemia Protocol Glucagon (Glucagen Diagnostic Kit) 0 mg IM STAT PRN; Protocol PRN Reason: Hypoglycemia Protocol Insulin Detemir (Levemir) 36 units SC [facility] Last Admin: 05/20/17 22:15 Dose: 36 units Insulin Human Regular (Humulin R) 0 units SC [facility] PRN Reason: Protocol Last Admin: 05/21/17 06:37 Dose: 3 unit Metformin HCl (Glucophage) 500 mg PO BIDWM [facility] Last Admin: 05/21/17 09:31 Dose: 500 mg Nicotine (Nicoderm Cq) 1 patch TD DAILY [facility] Last Admin: 05/21/17 09:32 Dose: 1 patch Thiamine HCl (Vitamin B1 Tab) 100 mg PO DAILY [facility] Last Admin: 05/21/17 09:31 Dose: 100 mg Valsartan (Diovan) 160 mg PO DAILY [facility] Last Admin: 05/21/17 09:31 Dose: 160 mg - Labs Labs: 05/21/17 05:40 PT 10.1 Seconds (9.8-13.1) 05/17/17 20:00 INR 1.0 (0.9-1.2) 05/17/17 20:00 APTT 28.0 Seconds (25.6-37.1) 05/17/17 20:00 Attending/Attestation - Attestation I have personally seen and examined this patient.: Yes I have fully participated in the care of the patient.: Yes I have reviewed all pertinent clinical information, including history, physical exam and plan: Yes
--- NOTE | 2017-05-20 11:35 | US ---
PROCEDURE: Duplex ultrasound of the carotid and vertebral arteries. HISTORY: Syncope, history of CAD COMPARISON: None available. TECHNIQUE: Grayscale and duplex Doppler evaluation of the cervical carotid and vertebral arteries were performed. The common carotid, carotid bifurcations and cervical ICA and proximal ECA were evaluated. The vertebral arteries were evaluated for gross patency and direction. FINDINGS: RIGHT CAROTID ARTERIES: Common Carotid Artery: Normal. Maximal flow velocity of 120.8 cm/s. Carotid Bifurcation: Calcified plaque Internal Carotid Artery:Heterogeneous plaque formation. .tortuous ICA Maximal flow velocity of 115.7 cm/s. External Carotid Artery (proximal branches): Maximal flow velocity of 105.1 cm/s. ICA/CCA Ratio: 1.4 LEFT CAROTID ARTERIES: Common Carotid Artery: Densely calcified plaque distal left common carotid Maximal flow velocity of 135.0 cm/s. Carotid Bifurcation: Heterogeneous plaque formation. Internal Carotid Artery:Heterogeneous plaque formation. Maximal flow velocity of 153.0 cm/s. External Carotid Artery (proximal branches): Heterogeneous plaque formation. Maximal flow velocity of two a 3.2 cm/s. ICA/CCA Ratio: VERTEBRAL ARTERIES: Right Vertebral Artery: Patent. Antegrade flow. Left Vertebral Artery: Patent. Antegrade flow. OTHER FINDINGS: None. IMPRESSION: Right ICA degree of stenosis: Less than 50% Left ICA degree of stenosis: 50- 69%. Reference Internal Carotid Artery (ICA) Peak Systolic Velocity (PSV) for above: 1. Less than 50% stenosis less than 125 cm/s peak systolic velocity 2. 50-69% stenosis 125-230cm/s peak systolic velocity 3. Greater than 70% but less than near occlusion greater than 230 cm/s peak systolic velocity
[2017-05-20 15:29] LABS: SQUAMOUS EPITHIAL 1 /hpf (0-5); URINE BACTERIA RARE (<OCC); URINE BILIRUBIN NEGATIVE (NEGATIVE); URINE BLOOD NEGATIVE (NEGATIVE); URINE CLARITY CLEAR (Clear); URINE COLOR STRAW (YELLOW); URINE GLUCOSE (UA) >=500 mg/dL (Normal); URINE LEUKOCYTE ESTERASE NEG Leu/uL (Negative); URINE NITRATE NEGATIVE (NEGATIVE); URINE PROTEIN NEGATIVE (NEGATIVE); URINE UROBILINOGEN 0.2-1.0 mg/dL (0.2-1.0)
[2017-05-20 16:35] VITALS: RESP 20
--- NOTE | 2017-05-20 17:16 | NM ---
PROCEDURE: Whole Body Bone Scan HISTORY: metastatic process COMPARISON: 05/17/2017. CT head May 20, 2017. Skeletal survey TECHNIQUE: Following administration of miCu of Tc MDP multiplanar whole body images were obtained. FINDINGS: Evidence for bony metastatic disease: Intense uptake in the right tibial plateau Degenerative uptake: Left ankle, asymmetric increased uptake in both patella, both knees. Physiologic uptake: Normal physiologic activity in the kidneys. Other findings: None. IMPRESSION: Area of intense increased uptake proximal right tibia/ tibial plateau region. In the absence of trauma or infectious process neoplasm should be considered. No abnormalities in the calvarium corresponding to lytic lesions on recent CT head.
--- NOTE | 2017-05-20 18:54 | RAD ---
PROCEDURE: Bone survey HISTORY: Lytic lesions - ? myeloma COMPARISON: 05/17/2017 CT head May 20, 2017. Bone scan TECHNIQUE: Standard protocol for this study/examination. FINDINGS: Calvarial lucencies consistent with findings on recent CT head No additional lytic or sclerotic abnormalities. A focus of intense increased uptake in the proximal right tibia does not have a plain film correlate. IMPRESSION: Lytic lesions in the calvarium consistent with findings on recent CT scan. No additional abnormalities apparent on the current study.
[2017-05-20] MEDS: Insulin Detemir 100 Units/ml Inj SC SCH (22:15)
[2017-05-21 06:28] LABS: HEMOGLOBIN 13.6 g/dL (12.0-16.0); MEAN CELL VOLUME 91.2 fl (81.0-99.0); MEAN CORPUSCULAR HEMOGLOBIN 30.3 pg (27.0-31.0); MEAN CORPUSCULAR HGB CONC 33.3 g/dL (33.0-37.0); RBC 4.48 Mil/uL (3.80-5.20); RED CELL DISTRIBUTION WIDTH 14.8 % (11.5-14.5); WHITE BLOOD COUNT 5.6 K/uL (4.8-10.8)
[2017-05-21] MEDS: Insulin Regular 100 units/ml SC SCH ×4 (06:37→22:13)
--- NOTE | 2017-05-21 06:48 | CP.PCM.PN ---
<Sarah Serrano - Last Filed: 05/21/17 14:01> Subjective - Date & Time of Evaluation Date of Evaluation: 05/21/17 Time of Evaluation: 07:43 - Subjective Subjective: No acute events overnight. Patient seen and examined with Dr. Keyes. Patient seen lying bed comfortably. Requesting to go home. Would like to sleep in her own bed. Discussed importance of Holter monitoring. She is amenable to staying for holter monitoring. Bone scans reviewed. Should start pt soon. Objective - Vital Signs/Intake and Output Vital Signs (last 24 hours): Temp Pulse Resp BP Pulse Ox 97.8 F 88 20 116/76 98 05/21/17 00:33 05/21/17 00:33 05/21/17 00:33 05/21/17 00:33 05/21/17 00:33 - Medications Medications: Current Medications Aspirin (Aspirin Chewable) 81 mg PO DAILY [facility] Last Admin: 05/20/17 08:45 Dose: 81 mg Atorvastatin Calcium (Lipitor) 40 mg PO HS [facility] Last Admin: 05/20/17 22:15 Dose: 40 mg Dextrose (Dextrose 50% Inj) 0 ml IV STAT PRN; Protocol PRN Reason: Hyglycemia Protocol Dextrose (Glutose 15) 0 gm PO ONCE PRN; Protocol PRN Reason: Hypoglycemia Protocol Enoxaparin Sodium (Lovenox) 40 mg SC DAILY [facility] PRN Reason: Protocol Last Admin: 05/20/17 09:28 Dose: 40 mg Glucagon (Glucagen Diagnostic Kit) 0 mg IM STAT PRN; Protocol PRN Reason: Hypoglycemia Protocol Insulin Detemir (Levemir) 36 units SC [facility] Last Admin: 05/20/17 22:15 Dose: 36 units Insulin Human Regular (Humulin R) [address] [facility] PRN Reason: Protocol Last Admin: 05/21/17 06:37 Dose: 3 unit Metformin HCl (Glucophage) 500 mg PO BIDWM [facility] Last Admin: 05/20/17 16:47 Dose: 500 mg Nicotine (Nicoderm Cq) 1 patch TD DAILY [facility] Last Admin: 05/20/17 08:47 Dose: 1 patch Thiamine HCl (Vitamin B1 Tab) 100 mg PO DAILY [facility] Last Admin: 05/20/17 08:46 Dose: 100 mg Valsartan (Diovan) 160 mg PO DAILY [facility] Last Admin: 05/20/17 08:45 Dose: 160 mg - Labs Labs: 05/21/17 05:40 PT 10.1 Seconds (9.8-13.1) 05/17/17 20:00 INR 1.0 (0.9-1.2) 05/17/17 20:00 APTT 28.0 Seconds (25.6-37.1) 05/17/17 20:00 - Constitutional Appears: Non-toxic, No Acute Distress - Head Exam Head Exam: NORMAL INSPECTION - Eye Exam Eye Exam: Normal appearance - Respiratory Exam Respiratory Exam: Clear to Ausculation Bilateral, NORMAL BREATHING PATTERN - Cardiovascular Exam Cardiovascular Exam: REGULAR RHYTHM, +S1, +S2 - GI/Abdominal Exam GI & Abdominal Exam: Soft. absent: Distended, Guarding, Tenderness - Extremities Exam Extremities Exam: absent: Pedal Edema - Neurological Exam Neurological Exam: Alert, Awake, CN II-XII Intact, Oriented x3 - Psychiatric Exam Psychiatric exam: Normal Affect, Normal Mood - Skin Skin Exam: Dry, Intact, Normal Color Assessment and Plan - Assessment and Plan (Free Text) Assessment: 71 y/o F with PMH including HTN, IDDM2, CAD s/p stent, ETOH abuse brought in by EMS after syncopal episode possibly secondary to ETOH abuse. CT Head was negative for ICH. Lytic lesion seen. Bone scan + for lytic lesion seen on CT, otherwise unremarkable. ?EEG pending. ?second degree AV block, Holter Monitor. Plan: Syncope -Cardiology Consult with Dr. Liao- input appreciated ; ?second degree AV block , Holter Monitor -Echo 70% EF -Carotid U/S: Right ICA degree of stenosis: Less than 50%. Left ICA degree of stenosis: 50- 69%. -Neurology consult- Dr. Arenas on board- input appreciatd EtOH abuse -s/p librium -Social work consult requested Lytic lesions on CT head - Multiple lytic lesions detected in the skull,, bone scan done. -SPEP negative, UPEP pending - Skeletal Survey - Will consider Hematology consult pending results CAD s/p stent -Taking atorvastatin 40mg PO HS -ASA 81mg PO daily -Cardiology Consult with Dr. Liao- input appreciated HTN- uncontrolled -05/19: increased valsartan 80mg PO daily to 160mg PO daily, overnight 150-160s, this AM: 116/76 -monitor Insulin Dependent Diabetes Mellitus, Type 2 -Last HgbA1c: 11.4% on 07/13/15, repeat: 05/18: 9.5% -Continue Levemir 36units SC HS, pt started on Metformin 500mg BID -MDSS -Accuchecks [facility] -Hypoglycemia protocol DVT Prophylaxis -Lovenox 40mg SC daily <Neymar Keyes - Last Filed: 05/23/17 06:36> Objective - Vital Signs/Intake and Output Vital Signs (last 24 hours): Temp Pulse Resp BP Pulse Ox 97.7 F 73 20 153/61 H 98 05/23/17 00:37 05/23/17 00:37 05/23/17 00:37 05/23/17 00:37 05/23/17 00:37 - Medications Medications: Current Medications Aspirin (Aspirin Chewable) 81 mg PO DAILY [facility] Last Admin: 05/22/17 09:02 Dose: 81 mg Atorvastatin Calcium (Lipitor) 40 mg PO HS [facility] Last Admin: 05/22/17 21:35 Dose: 40 mg Dextrose (Dextrose 50% Inj) 0 ml IV STAT PRN; Protocol PRN Reason: Hyglycemia Protocol Dextrose (Glutose 15) 0 gm PO ONCE PRN; Protocol PRN Reason: Hypoglycemia Protocol Glucagon (Glucagen Diagnostic Kit) 0 mg IM STAT PRN; Protocol PRN Reason: Hypoglycemia Protocol Insulin Detemir (Levemir) 36 units SC [facility] Last Admin: 05/22/17 21:34 Dose: 36 units Insulin Human Regular (Humulin R) 0 units SC [facility] PRN Reason: Protocol Last Admin: 05/22/17 21:35 Dose: Not Given Levalbuterol HCl (Xopenex) 0.63 mg INH RQ8 PRN PRN Reason: Shortness of Breath Metformin HCl (Glucophage) 500 mg PO BIDWM [facility] Last Admin: 05/22/17 17:37 Dose: 500 mg Nicotine (Nicoderm Cq) 1 patch TD DAILY [facility] Last Admin: 05/22/17 12:43 Dose: 1 patch Thiamine HCl (Vitamin B1 Tab) 100 mg PO DAILY [facility] Last Admin: 05/22/17 09:02 Dose: 100 mg Valsartan (Diovan) 160 mg PO DAILY [facility] Last Admin: 05/22/17 09:02 Dose: 160 mg - Labs Labs: 05/21/17 05:40 PT 10.1 Seconds (9.8-13.1) 05/17/17 20:00 INR 1.0 (0.9-1.2) 05/17/17 20:00 APTT 28.0 Seconds (25.6-37.1) 05/17/17 20:00 Attending/Attestation - Attestation I have personally seen and examined this patient.: Yes I have fully participated in the care of the patient.: Yes I have reviewed all pertinent clinical information, including history, physical exam and plan: Yes
[2017-05-21] MEDS: Enoxaparin 40 mg Syringe SC SCH (09:30)
[2017-05-21] MEDS: Insulin Detemir 100 Units/ml Inj SC SCH (22:14)
[2017-05-22] MEDS: Insulin Regular 100 units/ml SC SCH ×5 (07:04→21:35)
--- NOTE | 2017-05-22 08:33 | EEG ---
This is a 16-channel electroencephalogram of awake and drowsy adult. During the study, photic stimulation was performed, hyperventilation was not performed. The resting electroencephalogram continues to have moderate voltage 9 to 11 Hz. Alpha activity seen on parietal and occipital leads. 2 to 3 Hz. Delta activity seen at the frontal and central leads. The photic stimulation did not evoke a driving response noted at 2 to 25 Hz. IMPRESSION: This is a normal electroencephalogram of an awake and drowsy adult. During the study, neither electroencephalographic paroxysmal activities nor focal slowing noted. Kalia Arenas MD
[2017-05-22] MEDS ORDERED: Levalbuterol 0.63 MG/3 ML Inhal Soln UD INH PRN (08:48)
[2017-05-22] MEDS ORDERED: Levalbuterol 0.63 MG/3 ML Inhal Soln UD IH ONE (08:48)
--- NOTE | 2017-05-22 08:48 | CP.PCM.PN ---
<Sarah Serrano - Last Filed: 05/22/17 14:18> Subjective - Date & Time of Evaluation Date of Evaluation: 05/22/17 Time of Evaluation: 07:15 - Subjective Subjective: No acute events overnight. Patient wearing holter monitor. She did not sleep well due to her bed, states its not comfortable. She is still wearing holter monitor. No complaints presently. Some mild wheezing on exam, with cough. Will give xopenex x 1 neb and PRN inhaler. Patient ambulating to bathroom with walker. Asking for assistance with other activities. Objective - Vital Signs/Intake and Output Vital Signs (last 24 hours): Temp Pulse Resp BP Pulse Ox 97.8 F 81 20 153/86 H 98 05/22/17 07:49 05/22/17 07:49 05/22/17 07:49 05/22/17 07:49 05/22/17 07:49 - Medications Medications: Current Medications Aspirin (Aspirin Chewable) 81 mg PO DAILY [facility] Last Admin: 05/21/17 09:31 Dose: 81 mg Atorvastatin Calcium (Lipitor) 40 mg PO [facility] Last Admin: 05/21/17 22:14 Dose: 40 mg Dextrose (Dextrose 50% Inj) 0 ml IV STAT PRN; Protocol PRN Reason: Hyglycemia Protocol Dextrose (Glutose 15) 0 gm PO ONCE PRN; Protocol PRN Reason: Hypoglycemia Protocol Glucagon (Glucagen Diagnostic Kit) 0 mg IM STAT PRN; Protocol PRN Reason: Hypoglycemia Protocol Insulin Detemir (Levemir) 36 units SC [facility] Last Admin: 05/21/17 22:14 Dose: 36 units Insulin Human Regular (Humulin R) 0 units SC [facility] PRN Reason: Protocol Last Admin: 05/22/17 07:04 Dose: Not Given Metformin HCl (Glucophage) 500 mg PO BIDWM [facility] Last Admin: 05/21/17 16:00 Dose: 500 mg Nicotine (Nicoderm Cq) 1 patch TD DAILY [facility] Last Admin: 05/21/17 09:32 Dose: 1 patch Thiamine HCl (Vitamin B1 Tab) 100 mg PO DAILY [facility] Last Admin: 05/21/17 09:31 Dose: 100 mg Valsartan (Diovan) 160 mg PO DAILY [facility] Last Admin: 05/21/17 09:31 Dose: 160 mg - Labs Labs: 05/21/17 05:40 PT 10.1 Seconds (9.8-13.1) 05/17/17 20:00 INR 1.0 (0.9-1.2) 05/17/17 20:00 APTT 28.0 Seconds (25.6-37.1) 05/17/17 20:00 - Constitutional Appears: No Acute Distress - Head Exam Head Exam: NORMAL INSPECTION - Eye Exam Eye Exam: Normal appearance Pupil Exam: NORMAL ACCOMODATION - ENT Exam ENT Exam: Mucous Membranes Moist - Respiratory Exam Respiratory Exam: Wheezes (right lung base, otherwise clear), NORMAL BREATHING PATTERN. absent: Respiratory Distress - Cardiovascular Exam Cardiovascular Exam: +S1, +S2 - GI/Abdominal Exam GI & Abdominal Exam: Soft. absent: Distended, Guarding, Tenderness - Neurological Exam Neurological Exam: Alert, Awake, CN II-XII Intact, Oriented x3 - Psychiatric Exam Psychiatric exam: Normal Affect, Normal Mood - Skin Skin Exam: Dry, Intact, Normal Color Assessment and Plan - Assessment and Plan (Free Text) Assessment: 71 y/o F with PMH including HTN, IDDM2, CAD s/p stent, ETOH abuse brought in by EMS after syncopal episode possibly secondary to ETOH abuse. CT Head was negative for ICH. Lytic lesion seen. Bone scan + for lytic lesion seen on CT, otherwise unremarkable. EEG unremarkable. Holter Monitor for 24 hrs, will finish today. Will d/w Dr. Liao. Continue with PT/OT Plan: Syncope -Cardiology Consult with Dr. Liao- input appreciated ; ?second degree AV block , Holter Monitor -Echo 70% EF -Carotid U/S: Right ICA degree of stenosis: Less than 50%. Left ICA degree of stenosis: 50- 69%. -Neurology consult- Dr. Arenas on board- input appreciated EtOH abuse -Social work to see patient Lytic lesions on CT head - Multiple lytic lesions detected in the skull,, bone scan done. -SPEP negative, Skeletal Survey no other lesions CAD s/p stent -Taking atorvastatin 40mg PO HS -ASA 81mg PO daily -Cardiology Consult with Dr. Liao- input appreciated HTN- uncontrolled -improved on valsartan 160mg PO daily -monitor Insulin Dependent Diabetes Mellitus, Type 2 -Last HgbA1c: 11.4% on 07/13/15, repeat: 05/18: 9.5% -Continue Levemir 36units SC HS, pt started on Metformin 500mg BID -MDSS -[facility]uchc[place]o ACHS -Hypoglycemia protocol DVT Prophylaxis -Lovenox 40mg SC daily <Gaston Jain - Last Filed: 05/24/17 06:43> Objective - Vital Signs/Intake and Output Vital Signs (last 24 hours): Temp Pulse Resp BP Pulse Ox 97.5 F L 73 20 164/86 H 97 05/23/17 15:57 05/23/17 15:57 05/23/17 15:57 05/23/17 15:57 05/23/17 15:57 - Labs Labs: 05/21/17 05:40 PT 10.1 Seconds (9.8-13.1) 05/17/17 20:00 INR 1.0 (0.9-1.2) 05/17/17 20:00 APTT 28.0 Seconds (25.6-37.1) 05/17/17 20:00 Attending/Attestation - Attestation I have personally seen and examined this patient.: Yes I have fully participated in the care of the patient.: Yes I have reviewed all pertinent clinical information, including history, physical exam and plan: Yes
[2017-05-22] MEDS: Insulin Detemir 100 Units/ml Inj SC SCH (21:34)
[2017-05-22] MEDS ORDERED: Alum-Mag Hydrox-Simethicone Susp (30 mL) PO ONE (22:10)
[2017-05-23] MEDS: Insulin Regular 100 units/ml SC SCH ×3 (06:54→17:22)
[2017-05-23 08:14] VITALS: O2SAT 97
--- NOTE | 2017-05-23 11:50 | CP.PCM.PN ---
Subjective - Date & Time of Evaluation Date of Evaluation: 05/23/17 Time of Evaluation: 07:20 - Subjective Subjective: No acute events overnight. Patient seen and examined bedside with Dr. Keyes. She states she slept ok. No complaints offered. tolerating her diet. Ambulating with walker. Continue with physical therapy. Awaiting results of Holter monitor. Case was d/w Dr. Bandar Liao. Objective - Vital Signs/Intake and Output Vital Signs (last 24 hours): Temp Pulse Resp BP Pulse Ox 97.8 F 74 20 146/74 97 05/23/17 08:13 05/23/17 08:13 05/23/17 08:13 05/23/17 08:13 05/23/17 08:13 - Medications Medications: Current Medications Aspirin (Aspirin Chewable) 81 mg PO DAILY [facility] Last Admin: 05/23/17 08:33 Dose: 81 mg Atorvastatin Calcium (Lipitor) 40 mg PO HS [facility] Last Admin: 05/22/17 21:35 Dose: 40 mg Dextrose (Dextrose 50% Inj) 0 ml IV STAT PRN; Protocol PRN Reason: Hyglycemia Protocol Dextrose (Glutose 15) 0 gm PO ONCE PRN; Protocol PRN Reason: Hypoglycemia Protocol Glucagon (Glucagen Diagnostic Kit) 0 mg IM STAT PRN; Protocol PRN Reason: Hypoglycemia Protocol Insulin Detemir (Levemir) 36 units SC HS [facility] Last Admin: 05/22/17 21:34 Dose: 36 units Insulin Human Regular (Humulin R) 0 units SC [facility] PRN Reason: Protocol Last Admin: 05/23/17 06:54 Dose: Not Given Levalbuterol HCl (Xopenex) 0.63 mg INH RQ8 PRN PRN Reason: Shortness of Breath Metformin HCl (Glucophage) 500 mg PO BIDWM [facility] Last Admin: 05/23/17 08:33 Dose: 500 mg Nicotine (Nicoderm Cq) 1 patch TD DAILY [facility] Last Admin: 05/23/17 08:33 Dose: 1 patch Thiamine HCl (Vitamin B1 Tab) 100 mg PO DAILY [facility] Last Admin: 05/23/17 08:34 Dose: 100 mg Valsartan (Diovan) 160 mg PO DAILY [facility] Last Admin: 05/23/17 08:33 Dose: 160 mg - Labs Labs: 05/21/17 05:40 PT 10.1 Seconds (9.8-13.1) 05/17/17 20:00 INR 1.0 (0.9-1.2) 05/17/17 20:00 APTT 28.0 Seconds (25.6-37.1) 05/17/17 20:00 - Constitutional Appears: Non-toxic, No Acute Distress - Head Exam Head Exam: NORMAL INSPECTION - Eye Exam Eye Exam: Normal appearance - ENT Exam ENT Exam: Mucous Membranes Moist - Respiratory Exam Respiratory Exam: NORMAL BREATHING PATTERN - Cardiovascular Exam Cardiovascular Exam: REGULAR RHYTHM, +S1, +S2 - GI/Abdominal Exam GI & Abdominal Exam: Soft. absent: Distended, Guarding, Tenderness - Extremities Exam Extremities Exam: absent: Pedal Edema, Tenderness - Neurological Exam Neurological Exam: Alert, Awake, CN II-XII Intact, Oriented x3 - Psychiatric Exam Psychiatric exam: Normal Affect, Normal Mood - Skin Skin Exam: Dry, Intact, Normal Color Assessment and Plan - Assessment and Plan (Free Text) Assessment: 71 y/o F with PMH including HTN, IDDM2, CAD s/p stent, ETOH abuse brought in by EMS after syncopal episode possibly secondary to ETOH abuse vs cardiac etiology. Holter Monitor results pending d/w Dr. Liao. Continue with PT/OT. Plan: Syncope -Cardiology Consult with Dr. Liao, holter monitor results pending. -Echo 70% EF EtOH abuse -Social work to see patient Lytic lesions on CT head - Multiple lytic lesions detected in the skull,, bone scan done. -SPEP negative, Skeletal Survey no other lesions CAD s/p stent -Taking atorvastatin 40mg PO HS -ASA 81mg PO daily HTN- uncontrolled -improved on valsartan 160mg PO daily -monitor Insulin Dependent Diabetes Mellitus, Type 2 -Last HgbA1c : 9.5% -Continue Levemir 36units SC HS, pt started on Metformin 500mg BID -MDSS -Accuchecks ACHS -Hypoglycemia protocol DVT Prophylaxis -Lovenox 40mg SC daily
[2017-05-23 15:58] VITALS: BP 164/86; PULSE 73; TEMP 97.5
--- NOTE | 2017-05-23 18:25 | CP.PCM.PN ---
Subjective - Date & Time of Evaluation Date of Evaluation: 05/23/17 Time of Evaluation: 18:00 - Subjective Subjective: No dizzy spells Holter report noted Tracings reviewed Pt may go home on present Rx Will see Dr. Jain in a wk. Objective - Vital Signs/Intake and Output Vital Signs (last 24 hours): Temp Pulse Resp BP Pulse Ox 97.5 F L 73 20 164/86 H 97 05/23/17 15:57 05/23/17 15:57 05/23/17 15:57 05/23/17 15:57 05/23/17 15:57 - Medications Medications: Current Medications Aspirin (Aspirin Chewable) 81 mg PO DAILY [facility] Last Admin: 05/23/17 08:33 Dose: 81 mg Atorvastatin Calcium (Lipitor) 40 mg PO HS [facility] Last Admin: 05/22/17 21:35 Dose: 40 mg Dextrose (Dextrose 50% Inj) 0 ml IV STAT PRN; Protocol PRN Reason: Hyglycemia Protocol Dextrose (Glutose 15) 0 gm PO ONCE PRN; Protocol PRN Reason: Hypoglycemia Protocol Glucagon (Glucagen Diagnostic Kit) 0 mg IM STAT PRN; Protocol PRN Reason: Hypoglycemia Protocol Insulin Detemir (Levemir) 36 units SC HS [facility] Last Admin: 05/22/17 21:34 Dose: 36 units Insulin Human Regular (Humulin R) 0 units SC [facility] PRN Reason: Protocol Last Admin: 05/23/17 17:22 Dose: 3 unit Levalbuterol HCl (Xopenex) 0.63 mg INH RQ8 PRN PRN Reason: Shortness of Breath Metformin HCl (Glucophage) 500 mg PO BIDWM [facility] Last Admin: 05/23/17 17:23 Dose: 500 mg Nicotine (Nicoderm Cq) 1 patch TD DAILY [facility] Last Admin: 05/23/17 08:33 Dose: 1 patch Thiamine HCl (Vitamin B1 Tab) 100 mg PO DAILY [facility] Last Admin: 05/23/17 08:34 Dose: 100 mg Valsartan (Diovan) 160 mg PO DAILY [facility] Last Admin: 05/23/17 08:33 Dose: 160 mg - Labs Labs: 05/21/17 05:40 PT 10.1 Seconds (9.8-13.1) 05/17/17 20:00 INR 1.0 (0.9-1.2) 05/17/17 20:00 APTT 28.0 Seconds (25.6-37.1) 05/17/17 20:00
--- NOTE | 2017-05-24 08:25 | CARD ---
APPROVED REPORT Reason for Test: SYNCOPE / HEART BLOCK Hookup date: 2017-05-21 Removal date: 2017-05-22 Scan date: 2017-05-23 Recording time: 23 HR 59 MIN Heart Rate Data Total Beats: 26037 Min HR: 51 BPM at 5:26AM Avg HR: 76 BPM Max HR: 111 BPM at 1:02PM Ventricular Ectopy Total VE Beats: 589 (0.6%) Single/Interp PVC: 583/0 Single/Late VE's: 6/0 Supraventricular Ectopy Total VE Beats: 9 (0.0%) Drop/Late: 0/1 Longest R-R: 1.5 sec at 5:42 AM Single PAC's: 8 Conclusion The patient underwent a 24 hour halter recording. It showed sinus rhythm at rates which varied between 51 bpm and 111 bpm, varying in a physiological manner. Her average heart rate was 76 bpm. This was interrupted by occasional premature ventricular beats which were consistently isolated events. No repetitive ventricular ectopy was detected. There were extremely rare isolated premature atrial beats. There were no AV conduction abnormalities. The longest R to R interval was 1.5 seconds at 5:42 AM. No sustained tachycardia or bradycardia arrhythmias were detected. No symptoms were reported in the diary.
--- NOTE | 2017-05-24 16:35 | CP.PCM.DIS ---
Provider - Provider Date of Admission: 05/17/17 21:28 Attending physician: Gaston Jain MD Time Spent in preparation of Discharge (in minutes): 30 Hospital Course - Lab Results Lab Results: Most Recent Lab Values WBC 5.6 K/uL (4.8-10.8) 05/21/17 05:40 RBC 4.48 Mil/uL (3.80-5.20) 05/21/17 05:40 Hgb 13.6 g/dL (12.0-16.0) 05/21/17 05:40 Hct 40.8 % (34.0-47.0) 05/21/17 05:40 MCV 91.2 fl (81.0-99.0) 05/21/17 05:40 MCH 30.3 pg (27.0-31.0) 05/21/17 05:40 MCHC 33.3 g/dL (33.0-37.0) 05/21/17 05:40 RDW 14.8 % (11.5-14.5) H 05/21/17 05:40 Plt Count 248 K/uL (130-400) 05/21/17 05:40 MPV 7.4 fl (7.2-11.7) 05/17/17 20:00 Neut % (Auto) 62.5 % (50.0-75.0) 05/17/17 20:00 Lymph % (Auto) 29.8 % (20.0-40.0) 05/17/17 20:00 [place] % (Auto) 5.6 % (0.0-10.0) 05/17/17 20:00 Eos % (Auto) 0.9 % (0.0-4.0) 05/17/17 20:00 Baso % (Auto) 1.2 % (0.0-2.0) 05/17/17 20:00 Neut # 3.9 K/uL (1.8-7.0) 05/17/17 20:00 Lymph # 1.9 K/uL (1.0-4.3) 05/17/17 20:00 [place] # 0.3 K/uL (0.0-0.8) 05/17/17 20:00 Eos # 0.1 K/uL (0.0-0.7) 05/17/17 20:00 Baso # 0.1 K/uL (0.0-0.2) 05/17/17 20:00 PT 10.1 Seconds (9.8-13.1) 05/17/17 20:00 INR 1.0 (0.9-1.2) 05/17/17 20:00 APTT 28.0 Seconds (25.6-37.1) 05/17/17 20:00 Sodium 134 mmol/l (132-148) 05/17/17 20:00 Potassium 3.9 MMOL/L (3.6-5.0) 05/17/17 20:00 Chloride 101 mmol/L (98-107) 05/17/17 20:00 Carbon Dioxide 22 mmol/L (22-30) 05/17/17 20:00 Anion Gap 15 (10-20) 05/17/17 20:00 BUN 8 mg/dl (7-17) 05/17/17 20:00 Creatinine 0.5 mg/dL (0.7-1.2) L 05/17/17 20:00 Est GFR ( Amer) > 60 05/17/17 20:00 Est GFR (Non-Af Amer) > 60 05/17/17 20:00 POC Glucose (mg/dL) 209 mg/dL (65-110) H 05/23/17 16:07 Random Glucose 142 mg/dL (65-105) H 05/17/17 20:00 Hemoglobin A1c 9.5 % (4.2-6.5) H 05/18/17 06:00 Calcium 8.9 mg/dL (8.4-10.2) 05/17/17 20:00 Total Bilirubin 0.3 mg/dl (0.2-1.3) 05/17/17 20:00 AST 33 U/L (14-36) 05/17/17 20:00 ALT 45 U/L (9-52) 05/17/17 20:00 Alkaline Phosphatase 83 U/L (38-126) 05/17/17 20:00 Troponin I < 0.0120 ng/mL (0.00-0.120) 05/17/17 20:00 Total Protein 6.6 G/DL (6.3-8.2) 05/17/17 20:00 Albumin 4.0 g/dL (3.5-5.0) 05/17/17 20:00 Globulin 2.6 gm/dL (2.2-3.9) 05/17/17 20:00 Albumin/Globulin Ratio 1.5 (1.0-2.1) 05/17/17 20:00 Triglycerides 120 mg/DL (0-149) 05/18/17 06:00 Cholesterol 157 mg/dL (0-199) 05/18/17 06:00 LDL Cholesterol Direct 54 mg/dL (0-129) 05/18/17 06:00 HDL Cholesterol 84 MG/DL (30-70) H 05/18/17 06:00 Vitamin B12 408 pg/mL (239-931) 05/18/17 06:00 Folate 11.9 ng/mL 05/18/17 06:00 TSH 3rd Generation 1.61 mIU/ML (0.46-4.68) 05/18/17 06:00 Prolactin 12.6 ng/mL (3.0-18.9) 05/18/17 10:30 Urine Color Straw (YELLOW) 05/20/17 14:45 Urine Clarity Clear (Clear) 05/20/17 14:45 Urine pH 6.0 (5.0-8.0) 05/20/17 14:45 Ur Specific [place] 1.009 (1.003-1.030) 05/20/17 14:45 Urine Protein Negative mg/dL (NEGATIVE) 05/20/17 14:45 Urine Glucose (UA) >=500 mg/dL (Normal) 05/20/17 14:45 Urine Ketones Negative mg/dL (NEGATIVE) 05/20/17 14:45 Urine Blood Negative (NEGATIVE) 05/20/17 14:45 Urine Nitrate Negative (NEGATIVE) 05/20/17 14:45 Urine Bilirubin Negative (NEGATIVE) 05/20/17 14:45 Urine Urobilinogen 0.2-1.0 mg/dL (0.2-1.0) 05/20/17 14:45 Ur Leukocyte Esterase Neg [place]/uL (Negative) 05/20/17 14:45 Urine Microscopic WBC < 1 /hpf (0-5) 05/20/17 14:45 Ur Squamous Epith Cells 1 /hpf (0-5) 05/20/17 14:45 Urine Bacteria Rare (<OCC) 05/20/17 14:45 Urine Opiates Screen Negative (NEGATIVE) 05/17/17 23:18 Urine Methadone Screen Negative (NEGATIVE) 05/17/17 23:18 Ur Barbiturates Screen Negative (NEGATIVE) 05/17/17 23:18 Ur Phencyclidine Scrn Negative (NEGATIVE) 05/17/17 23:18 Ur Amphetamines Screen Negative (NEGATIVE) 05/17/17 23:18 U Benzodiazepines Scrn Negative (NEGATIVE) 05/17/17 23:18 U Oth Cocaine Metabols Negative (NEGATIVE) 05/17/17 23:18 U Cannabinoids Screen Negative (NEGATIVE) 05/17/17 23:18 Alcohol, Quantitative 149 mg/dl (0-10) H 05/17/17 22:40 Serum Immunofixation Not detected (Not Detected) 05/18/17 10:30 - Hospital Course Hospital Course: 71 y/o F with PMH including HTN, IDDM2, CAD s/p stent, and ETOH abuse, admitted for syncope. On admission patient ETOH level was [address] scan of the head showed lytic lesion present on prior imaging. Pt. subsequently evaluated by cardiology and subsequently discharged to home by Cardiology Dr. Liao after holter monitoring completed with no further intervention at this time. Discharge Meds 1- Metformin 500mg BID 2- Lantus 40 units qhs 3- Lispro 8 units with each meal 4- Diovan 160 mg once daily 5- Lipitor 40mg 6- ASA 81mg 7- Folic acid 8- Thiamine 100mg Discharge Exam - Head Exam Head Exam: NORMAL INSPECTION - Eye Exam Eye Exam: Normal appearance - ENT Exam ENT Exam: Mucous Membranes Moist - Respiratory Exam Respiratory Exam: Clear to PA & Lateral, NORMAL BREATHING PATTERN - Cardiovascular Exam Cardiovascular Exam: REGULAR RHYTHM, +S1, +S2 - GI/Abdominal Exam GI & Abdominal Exam: Soft. absent: Tenderness - Extremities Exam Extremities exam: normal capillary refill Discharge Plan - Follow Up Plan Condition: GOOD Disposition: HOME/ ROUTINE Instructions: Syncope (DC)
== END 2017-05-23 19:00 | disposition home or self-care (01) | DRG 312 ==
LOC: H.ER 18:51 → H.ERHOLD 21:28 → H.TEL 23:00 → H.MEDSURG1 05-20 10:51
PROVIDERS: ADMIT Family Medicine; ATTEND Family Medicine
DX: R55 Syncope and collapse (principal); E11.9 Type 2 diabetes mellitus without complications; I44.1 Atrioventricular block, second degree; I10 Essential (primary) hypertension; I25.10 Atherosclerotic heart disease of native coronary artery without angina pectoris; F10.10 Alcohol abuse, uncomplicated; J45.909 Unspecified asthma, uncomplicated; F17.210 Nicotine dependence, cigarettes, uncomplicated; M89.9 Disorder of bone, unspecified; Z95.5 Presence of coronary angioplasty implant and graft; Z79.4 Long term (current) use of insulin